=== PATIENT | female | born 1970 | race Caucasian/White ===

== ENCOUNTER 2020-08-15 23:47 | Emergency (ER) | payer OTHER ==
[~2020-08-15 23:47] MED LIST: MACROBID100 MG PO; PRINIVIL20 MG PO; ZOFRAN4 MG PO
[2020-08-16] MEDS ORDERED: ATARAX25 MG PO (01:02)
== END 2020-08-16 01:20 | disposition home or self-care (01) ==
LOC: FER 23:47
DX: F41.9 Anxiety disorder, unspecified (principal); E11.9 Type 2 diabetes mellitus without complications; I10 Essential (primary) hypertension; F17.200 Nicotine dependence, unspecified, uncomplicated
CPT/HCPCS: 71045; 93005

== ENCOUNTER 2020-08-20 00:46 | Emergency (ER) | payer OTHER ==
[~2020-08-20 00:46] MED LIST changes: +ATARAX25 MG PO
[2020-08-20 02:39] LABS: BILIRUBIN 1+ mg/dL (NEGATIVE); BLOOD NEGATIVE Ery/uL (NEGATIVE); CLARITY CLOUDY (CLEAR); COLOR YELLOW (YELLOW); GLUCOSE (U) NORMAL (NORMAL); LEUKOCYTES NEGATIVE Leu/uL (NEGATIVE); NITRITE NEGATIVE (NEGATIVE); PROTEIN NEGATIVE (NEGATIVE); SPECIFIC GRAVITY >=1.030 (1.001-1.030); UROBILINOGEN 0.2 mg/dL (0.2-1.0); pH 5.5 (5.0-9.0)
[2020-08-20 03:00] LABS: EOSINOPHIL 1.5 % (0-5); HCT 40.3 % (37.0-47.0); HGB 12.2 g/dl (12.5-16.0); MCH 23.8 pg (25.0-31.0); MCHC 30.3 g/dL (32.0-36.0); MCV 78.6 fL (78.0-100.0); MONOCYTE 7.8 % (0-12); MPV 11.8 fL (6.0-9.5); NEUTROPHIL 68.4 % (41-80); NRBC 0; PLT 225 K/uL (150-400); RBC 5.13 M/uL (4.20-5.40); RDW 17.9 % (11.5-14.0); WBC 10.6 K/uL (4.0-10.5)
[2020-08-20 03:09] LABS: ALBUMIN 3.5 g/dL (3.4-5.0); BILIRUBIN - TOTAL 0.2 mg/dL (0.2-1.0); CREATININE 0.87 mg/dL (0.51-0.95); GLOBULIN (CALCULATION) 4.5 g/dL; POTASSIUM 3.3 mmol/L (3.5-5.1)
== END 2020-08-20 03:53 | disposition left against medical advice (07) ==
LOC: FER 00:46
PROVIDERS: Emergency Medicine
DX: R10.9 Unspecified abdominal pain (principal); R06.02 Shortness of breath; Z53.8 Procedure and treatment not carried out for other reasons
CPT/HCPCS: 36415; 80053; 81003; 83690; 85025